=== PATIENT | female | born 1940 | race Caucasian/White ===

== ENCOUNTER 2017-02-06 12:20 | Emergency (ER) | payer MEDICARE, BC ==
[2017-02-06] MEDS ORDERED: Sodium Chloride 0.9% 10 ML Syringe FLUSH PRN (12:30)
--- NOTE | 2017-02-06 12:30 | EDM.PDOC ---
ED HPI GENERAL MEDICAL PROBLEM - General Chief Complaint: Genitourinary Problem Stated Complaint: Pelvic Pain; Vaginal Bleeding Time Seen by Provider: 02/06/17 12:24 Source of Information: Reports: Patient, EMS Notes Reviewed, RN, RN Notes Reviewed History Limitations: Reports: No Limitations - History of Present Illness INITIAL COMMENTS - FREE TEXT/NARRATIVE: Patient is brought to the ED at [facility] via EMS complaining of acute vaginal bleeding with clots. Patient states she has on/off vaginal spotting since April 2016. She states over the past week, she had felt very nauseated and just not feeling well. Patient states earlier today, she had bright red blood with clots. She states she got very dizzy and felt faint. She then call 911 for assistance. Upon arrival, EMS crew states the patient did have a syncopal episode briefly when they were getting her onto the cot. Patient denies any medical history. She has not seen a medical provider in over 5 years. She denies taking any prescription medication. She complains of low back pain. She complains of lower anterior pelvic pain that is dull, achey in nature. She feels dizzy and nauseated. She received one dose of 4mg Zofran from EMS prior to arrival. Onset: Today, Sudden Onset Date: 02/06/17 Onset Time: 11:30 Duration: Waxing/Waning Location: Reports: Pelvis Quality: Reports: Ache Severity: Mild Improves with: Reports: None Worsens with: Reports: Movement Associated Symptoms: Reports: Nausea/Vomiting Treatments CHEMICAL PROCESSOR: Reports: See EMS Report Lower Back Pain Score (Numeric/FACES): 5 - Related Data Allergies Allergy/AdvReac Type Severity Reaction Status Date / Time amoxicillin Allergy Redness Verified 02/06/17 12:33 ceftriaxone Allergy Redness Verified 02/06/17 12:33 Home Meds: Home Meds . [No Known Home Meds] 10/07/14 [History] Past Medical History - Past Health History Medical/Surgical History: Denies Medical/Surgical History Social & Family History - Tobacco Use Smoking Status *Q: Never Smoker - Recreational Drug Use Recreational Drug Use: No ED ROS GENERAL - Review of Systems Review Of Systems: See Below Constitutional: Denies: Fever, Chills, Weakness Respiratory: Denies: Shortness of Breath, Cough Cardiovascular: Denies: Chest Pain, Palpitations GI/Abdominal: Reports: Nausea, Vomiting. Denies: Abdominal Pain : Reports: Discharge, Pain Skin: Reports: No Symptoms Neurological: Reports: Dizziness, Syncope. Denies: Headache, Numbness, Paresthesia, Tingling ED EXAM, RENAL/ - Physical Exam Exam: See Below Exam Limited By: No Limitations General Appearance: Alert, No Apparent Distress Respiratory/Chest: No Respiratory Distress, Lungs Clear, Normal Breath Sounds Cardiovascular: Normal Peripheral Pulses, Regular Rate, Rhythm GI/Abdominal: Soft, Abnormal Bowel Sounds (Hypoactive) (Female) Exam: Vaginal Bleeding (clots) Neurological: Alert, Oriented Skin Exam: Warm, Dry, Intact, Normal Color, No Rash Course - Vital Signs Last Recorded V/S: Last Vital Signs Temp 35.5 C 02/06/17 12:20 Pulse 91 02/06/17 13:00 Resp 16 02/06/17 12:20 BP 191/80 H 02/06/17 13:00 Pulse Ox 98 02/06/17 12:20 - Orders/Labs/Meds Orders: Active Orders 24 hr Category Date Time Status Insert Bridges Catheter [Insert Urinary Catheter] [OM.PC] Care 02/06/17 13:30 Ordered Stat Urinary Catheter Assessment [RC] ASDIRECTED Care 02/06/17 13:24 Active Abdomen Pelvis wo Cont [CT] Stat Exams 02/06/17 13:07 Taken Sodium Chloride 0.9% [Saline Flush] Med 02/06/17 12:30 Active 10 ml FLUSH ASDIRECTED PRN Peripheral IV Insertion Adult [OM.PC] Routine Oth 02/06/17 12:30 Ordered Medication Orders Sodium Chloride (Saline Flush) 10 ml FLUSH ASDIRECTED PRN PRN Reason: Keep Vein Open Labs: Laboratory Tests 02/06/17 02/06/17 02/06/17 Range/Units 12:37 12:37 13:02 WBC 8.2 (4.0-10.0) x10^3/uL RBC 1.79 L (4.00-5.50) x10^6/uL Hgb 5.4 L* D (12.0-16.0) g/dL Hct 16.1 L (33.0-47.0) % MCV 89.9 (78.0-93.0) fL MCH 30.2 (26.0-32.0) pg MCHC 33.5 (32.0-36.0) g/dL RDW Coeff of Martita 13.2 (10.0-15.0) % Plt Count 174 (130-400) x10^3/uL Add Manual Diff Yes Neutrophils % (Manual) 96 H (50-80) % Lymphocytes % (Manual) 3 L (25-50) % Monocytes % (Manual) 1 L (2-11) % Toxic Granulation 1+ slight H Platelet Estimate Adequate Poikilocytosis 1+ slight H Ovalocytes 1+ slight H [place] Cells 1+ slight H Rouleaux 1+ slight H Schistocytes Rare Sodium 136 (136-145) mmol/L Potassium 4.2 (3.5-5.1) mmol/L Chloride 104 (98-107) mmol/L Carbon Dioxide 12 L D (21-32) mmol/L BUN 121 H* D (7-18) mg/dL Creatinine 14.0 H* D (0.55-1.02) mg/dL Est Cr Clr Drug Dosing TNP Estimated GFR (MDRD) 3 Glucose 150 H (74-106) mg/dL Calcium 7.2 L D (8.5-10.1) mg/dL Corrected Calcium 8.24 L (8.5-10.1) mg/dL Total Bilirubin 0.5 (0.2-1.0) mg/dL AST 9 L (15-37) U/L ALT 8 L (14-59) U/L Alkaline Phosphatase 63 (46-116) U/L Total Protein 5.9 L (6.4-8.2) g/dL Albumin 2.7 L (3.4-5.0) g/dL Globulin 3.2 Albumin/Globulin Ratio 0.84 Urine Color Light yellow (YELLOW) Urine Appearance Clear (CLEAR) Urine pH 6.5 (5.0-8.0) Ur Specific [place] 1.010 Urine Protein 30 H (NEGATIVE) mg/dL Urine Glucose (UA) Negative (NEGATIVE) mg/dL Urine Ketones Negative (NEGATIVE) mg/dL Urine Occult Blood Moderate H (NEGATIVE) Urine Nitrite Negative (NEGATIVE) Urine Bilirubin Negative (NEGATIVE) Urine Urobilinogen 0.2 (0.2) EU/dL Ur Leukocyte Esterase Trace H (NEGATIVE) Urine RBC 0-5 (NOT SEEN) /HPF Urine WBC 0-5 (NOT SEEN) /HPF Ur Squamous Epith Cells Not seen (NEGATIVE) /HPF Urine Bacteria Rare (NEGATIVE) /HPF Urine Mucus Rare H (NEGATIVE) /LPF Meds: Medications Generic Name Dose Route Start Last Admin Trade Name Kirk PRN Reason Stop Dose Admin Sodium Chloride 10 ml 02/06/17 12:30 Saline Flush FLUSH ASDIRECTED PRN Keep Vein Open Departure - Departure Time of Disposition: 13:48 Disposition: DC/Tfer to Acute Hospital 02 Condition: Fair Clinical Impression: Vaginal bleeding, abnormal, Low hemoglobin Acute renal failure Qualifiers: Acute renal failure type: unspecified Qualified Code(s): N17.9 - Acute kidney failure, unspecified - Discharge Information Forms: Interfacility Transfer EMTALA ED Communication - ED Communication Date/Time Date: 02/06/17 Time Called: 13:40 - Discussed Case With (1) Discussed Case With (1): Admitting Provider (Dr. Shah, Hospitalist) - Conversation Summary Admitting Provider Agreed to Patient's Admission: Yes Summary Comment: Case discussed with Dr. Shah along with [facility] services. Patient will be transferred to [facility] for further workup and eval. Discussed with patient and agrees with transfer. - Problem List Review Problem List Initiated/Reviewed/Updated: Yes - My Orders Last 24 Hours: My Active Orders 02/06/17 12:30 Sodium Chloride 0.9% [Saline Flush] 10 ml FLUSH ASDIRECTED PRN Peripheral IV Insertion Adult [OM.PC] Routine 02/06/17 13:07 Abdomen Pelvis wo Cont [CT] Stat 02/06/17 13:24 Urinary Catheter Assessment [RC] ASDIRECTED 02/06/17 13:30 Insert Bridges Catheter [Insert Urinary Catheter] [OM.PC] Stat - Assessment/Plan Last 24 Hours: My Active Orders 02/06/17 12:30 Sodium Chloride 0.9% [Saline Flush] 10 ml FLUSH ASDIRECTED PRN Peripheral IV Insertion Adult [OM.PC] Routine 02/06/17 13:07 Abdomen Pelvis wo Cont [CT] Stat 02/06/17 13:24 Urinary Catheter Assessment [RC] ASDIRECTED 02/06/17 13:30 Insert Bridges Catheter [Insert Urinary Catheter] [OM.PC] Stat
[2017-02-06 13:04] LABS: CHLORIDE,CL 104 mmol/L (98-107); SODIUM,NA 136 mmol/L (136-145)
[2017-02-06 13:56] VITALS: BP 174/79
== END 2017-02-06 14:58 | disposition short-term general hospital (02) ==
LOC: VM.ED 12:20
DX: N93.9 Abnormal uterine and vaginal bleeding, unspecified (principal); D64.9 Anemia, unspecified; N17.9 Acute kidney failure, unspecified
CPT/HCPCS: 36415; 51702; 74176; 80053; 81001; 85025; 99284-GF; 99285

== ENCOUNTER 2017-10-16 12:54 | Emergency (ER) | payer MEDICARE, BC, MEDICAID ==
[2017-10-16] MEDS ORDERED: Sodium Chloride 0.9% 1,000 ML IV ONE ×2 (13:22→13:50)
--- NOTE | 2017-10-16 13:43 | EDM.PDOC ---
ED HPI GENERAL MEDICAL PROBLEM - General Chief Complaint: Cardiovascular Problem Stated Complaint: chest pain on inspiration Time Seen by Provider: 10/16/17 13:00 Source of Information: Reports: Patient History Limitations: Reports: No Limitations - History of Present Illness INITIAL COMMENTS - FREE TEXT/NARRATIVE: Patient reports chest pain that started last night. She states that it is worse when she takes a deep breath in. She states that it does radiate to the back and ribs. No nausea, vomiting, blood in urine or stool. 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 She does have bilateral nephrostomy tubes draining. Last change of these is reported to be last March,. Recently treated for UTI with course completion of Cipro on this last October 14. Denies fever, chills, night sweats. Does feel weak and was referred here by her hospice team. Onset: Gradual Onset Date: 10/15/17 Duration: Getting Worse Location: Reports: Chest Quality: Reports: Pressure Worsens with: Reports: Movement Middle Chest Pain Score (Numeric/FACES): 10 - Related Data Allergies Allergy/AdvReac Type Severity Reaction Status Date / Time amoxicillin Allergy Redness Verified 02/06/17 12:33 ceftriaxone Allergy Redness Verified 02/06/17 12:33 Home Meds: Home Meds . [No Known Home Meds] 10/07/14 [History] Past Medical History - Past Health History Medical/Surgical History: Denies Medical/Surgical History ED ROS GENERAL - Review of Systems Review Of Systems: See Below Constitutional: Reports: No Symptoms HEENT: Reports: No Symptoms Respiratory: Reports: Shortness of Breath Cardiovascular: Reports: Chest Pain Endocrine: Reports: No Symptoms GI/Abdominal: Reports: No Symptoms : Reports: No Symptoms Musculoskeletal: Reports: No Symptoms Skin: Reports: No Symptoms Neurological: Reports: Weakness Psychiatric: Reports: No Symptoms Hematologic/Lymphatic: Reports: No Symptoms Immunologic: Reports: No Symptoms ED EXAM, GENERAL - Physical Exam Exam: See Below Exam Limited By: No Limitations General Appearance: Alert, WD/WN, Mild Distress Eye Exam: Bilateral Eye: EOMI, Normal Inspection, PERRL Ears: Normal TMs Throat/Mouth: Normal Inspection, Normal Lips, Normal Teeth, Normal Gums, Normal Oropharynx, Normal Voice, No Airway Compromise Head: Atraumatic, Normocephalic Neck: Normal Inspection, Supple, Non-Tender, Full Range of Motion Respiratory/Chest: No Respiratory Distress, Lungs Clear, Normal Breath Sounds, No Accessory Muscle Use, Chest Non-Tender Cardiovascular: Tachycardia, Irregularly Irregular Peripheral Pulses: 2+: Posterior Tibial (L), Posterior Tibial (R), Dorsalis Pedis (L), Dorsalis Pedis (R) GI/Abdominal: Normal Bowel Sounds, Soft, Non-Tender, Other (bilateral nephrostomy tubes intact) Back Exam: Normal Inspection, Full Range of Motion, NT Extremities: Normal Inspection, Normal Range of Motion, Non-Tender, Normal Capillary Refill, No Pedal Edema Neurological: Alert, Oriented, CN II-XII Intact, Normal Cognition, Normal Gait, Normal Reflexes, No Motor/Sensory Deficits Psychiatric: Normal Affect, Normal Mood Skin Exam: Warm, Dry, Intact, Normal Color, No Rash Course - Vital Signs Last Recorded V/S: Last Vital Signs Temp 38.6 C H 10/16/17 14:50 Pulse 113 H 10/16/17 15:16 Resp 20 10/16/17 14:50 BP 90/63 10/16/17 15:16 Pulse Ox 97 10/16/17 14:50 - Orders/Labs/Meds Orders: Active Orders 24 hr Category Date Time Status EKG 12 Lead [EKG Documentation Completion] [RC] ROUTINE Care 10/16/17 15:11 Ordered EKG Documentation Completion [RC] ROUTINE Care 10/16/17 13:00 Active Chest 1V Frontal [CR] Stat Exams 10/16/17 13:01 Taken CULTURE BLOOD [BC] Stat Lab 10/16/17 13:21 Received CULTURE BLOOD [BC] Stat Lab 10/16/17 13:25 Results Sodium Chloride 0.9% [Saline Flush] Med 10/16/17 14:39 Active 10 ml FLUSH ASDIRECTED PRN Blood Culture x2 Reflex Set [OM.PC] Stat Oth 10/16/17 13:23 Ordered Saline Lock Insert [OM.PC] Routine Oth 10/16/17 14:39 Ordered Medication Orders Sodium Chloride (Saline Flush) 10 ml FLUSH ASDIRECTED PRN PRN Reason: Keep Vein Open Labs: Laboratory Tests 10/16/17 10/16/17 10/16/17 Range/Units 13:21 13:21 13:21 WBC 11.5 H (4.0-10.0) x10^3/uL RBC 2.88 L (4.00-5.50) x10^6/uL Hgb 8.4 L D (12.0-16.0) g/dL Hct 25.8 L (33.0-47.0) % MCV 89.6 (78.0-93.0) fL MCH 29.2 (26.0-32.0) pg MCHC 32.6 (32.0-36.0) g/dL RDW Coeff of Martita 14.9 (10.0-15.0) % Plt Count 599 H D (130-400) x10^3/uL Neut % (Auto) 90.2 H (50.0-80.0) % Lymph % (Auto) 4.3 L (25.0-50.0) % [place] % (Auto) 5.1 (2.0-11.0) % Eos % (Auto) 0.3 (0.0-4.0) % Baso % (Auto) 0.1 L (0.2-1.2) % PT 10.4 (9.6-11.4) SEC INR 1.0 L (2.0-3.5) Sodium 130 L (136-145) mmol/L Potassium 4.0 (3.5-5.1) mmol/L Chloride 100 (98-107) mmol/L Carbon Dioxide 17 L (21-32) mmol/L Anion Gap 17.0 (10-20) mmol/L BUN 37 H D (7-18) mg/dL Creatinine 3.1 H* D (0.55-1.02) mg/dL Est Cr Clr Drug Dosing TNP Estimated GFR (MDRD) 15 Glucose 103 (74-106) mg/dL Lactic Acid (0.4-2.0) mmol/L Calcium 8.2 L (8.5-10.1) mg/dL Corrected Calcium 9.64 (8.5-10.1) mg/dL Magnesium 1.4 L (1.8-2.4) mg/dL Total Bilirubin 0.4 (0.2-1.0) mg/dL AST 13 L (15-37) U/L ALT 14 (14-59) U/L Alkaline Phosphatase 80 (46-116) U/L Creatine Kinase 9 L (26-192) U/L Troponin I < 0.017 (<=0.056) ng/mL C-Reactive Protein 11.2 H (<=0.9) mg/dL NT-Pro-B Natriuret Pep (<=125) pg/mL Total Protein 7.2 (6.4-8.2) g/dL Albumin 2.2 L (3.4-5.0) g/dL Globulin 5.0 Albumin/Globulin Ratio 0.44 Urine Color (YELLOW) Urine Appearance (CLEAR) Urine pH (5.0-8.0) Ur Specific [place] Urine Protein (NEGATIVE) mg/dL Urine Glucose (UA) (NEGATIVE) mg/dL Urine Ketones (NEGATIVE) mg/dL Urine Occult Blood (NEGATIVE) Urine Nitrite (NEGATIVE) Urine Bilirubin (NEGATIVE) Urine Urobilinogen (0.2) EU/dL Ur Leukocyte Esterase (NEGATIVE) Urine RBC (NOT SEEN) /HPF Urine WBC (NOT SEEN) /HPF Ur Squamous Epith Cells (NEGATIVE) /HPF Urine Bacteria (NEGATIVE) /HPF Urine Mucus (NEGATIVE) /LPF 10/16/17 10/16/17 10/16/17 Range/Units 13:21 13:21 13:43 WBC (4.0-10.0) x10^3/uL RBC (4.00-5.50) x10^6/uL Hgb (12.0-16.0) g/dL Hct (33.0-47.0) % MCV (78.0-93.0) fL MCH (26.0-32.0) pg MCHC (32.0-36.0) g/dL RDW Coeff of Martita (10.0-15.0) % Plt Count (130-400) x10^3/uL Neut % (Auto) (50.0-80.0) % Lymph % (Auto) (25.0-50.0) % [place] % (Auto) (2.0-11.0) % Eos % (Auto) (0.0-4.0) % Baso % (Auto) (0.2-1.2) % PT (9.6-11.4) SEC INR (2.0-3.5) Sodium (136-145) mmol/L Potassium (3.5-5.1) mmol/L Chloride (98-107) mmol/L Carbon Dioxide (21-32) mmol/L Anion Gap (10-20) mmol/L BUN (7-18) mg/dL Creatinine (0.55-1.02) mg/dL Est Cr Clr Drug Dosing Estimated GFR (MDRD) Glucose (74-106) mg/dL Lactic Acid 1.2 (0.4-2.0) mmol/L Calcium (8.5-10.1) mg/dL Corrected Calcium (8.5-10.1) mg/dL Magnesium (1.8-2.4) mg/dL Total Bilirubin (0.2-1.0) mg/dL AST (15-37) U/L ALT (14-59) U/L Alkaline Phosphatase (46-116) U/L Creatine Kinase (26-192) U/L Troponin I (<=0.056) ng/mL C-Reactive Protein (<=0.9) mg/dL NT-Pro-B Natriuret Pep 1881 H (<=125) pg/mL Total Protein (6.4-8.2) g/dL Albumin (3.4-5.0) g/dL Globulin Albumin/Globulin Ratio Urine Color Light yellow (YELLOW) Urine Appearance Turbid H (CLEAR) Urine pH 6.0 (5.0-8.0) Ur Specific [place] 1.015 Urine Protein 100 H (NEGATIVE) mg/dL Urine Glucose (UA) Negative (NEGATIVE) mg/dL Urine Ketones Negative (NEGATIVE) mg/dL Urine Occult Blood Large H (NEGATIVE) Urine Nitrite Positive H (NEGATIVE) Urine Bilirubin Negative (NEGATIVE) Urine Urobilinogen 0.2 (0.2) EU/dL Ur Leukocyte Esterase Large H (NEGATIVE) Urine RBC 20-30 H (NOT SEEN) /HPF Urine WBC Packed (NOT SEEN) /HPF Ur Squamous Epith Cells Rare (NEGATIVE) /HPF Urine Bacteria Moderate H (NEGATIVE) /HPF Urine Mucus Not seen (NEGATIVE) /LPF Meds: Medications Generic Name Dose Route Start Last Admin Trade Name Freq PRN Reason Stop Dose Admin Sodium Chloride 10 ml 10/16/17 14:39 Saline Flush FLUSH ASDIRECTED PRN Keep Vein Open Discontinued Medications Generic Name Dose Route Start Last Admin Trade Name Freq PRN Reason Stop Dose Admin Diltiazem HCl 20 mg 10/16/17 13:50 07/03/18 13:55 Diltiazem IVPUSH 10/16/17 13:51 20 mg ONETIME ONE Administration Diltiazem HCl 20 mg 10/16/17 14:52 Diltiazem IVPUSH 10/16/17 14:53 ONETIME ONE Diltiazem HCl 15 mg 10/16/17 14:53 10/16/17 15:16 Diltiazem IVPUSH 10/16/17 14:54 Not Given ONETIME ONE Sodium Chloride 1,000 mls @ 999 mls/hr 10/16/17 13:22 10/16/17 13:23 Normal Saline IV 10/16/17 14:22 999 mls/hr ONETIME ONE Administration Vancomycin HCl 1,500 mg/ 250 mls @ 167 mls/hr 10/16/17 13:30 10/16/17 13:52 Sodium Chloride IV 10/16/17 14:59 167 mls/hr ONETIME ONE Administration Sodium Chloride 1,000 mls @ 999 mls/hr 10/16/17 13:50 10/16/17 14:49 Normal Saline IV 10/16/17 14:50 999 mls/hr ONETIME ONE Administration Piperacillin Sod/Tazobactam 100 mls @ 200 mls/hr 10/16/17 14:54 10/16/17 15: 08 Sod 2.25 gm/ Sodium Chloride IV 10/16/17 15:23 200 mls/hr ONETIME ONE Administration - Radiology Interpretation Free Text/Narrative:: chest x-ray is negative for acute process - Re-Assessments/Exams Free Text/Narrative Re-Assessment/Exam: 10/16/17 15:08 Carolina with hospice called regarding need for transfer. She will have someone stop by to have forms filled out for payment of expenses per patient. Departure - Departure Time of Disposition: 15:37 Disposition: DC/Tfer to Acute Hospital 02 Reason for Transfer *Q: Other Condition: Fair Clinical Impression: Sepsis, Atrial fibrillation with RVR Referrals: PCP,Unknown [Primary Care Provider] - Forms: ED Department Discharge, Interfacility Transfer EMTALA ED Communication - Discussed Case With (1) Discussed Case With (1): Admitting Provider (Report given to Dr. Lopez. He will accept care of patient to room 269) - My Orders Last 24 Hours: My Active Orders 10/16/17 13:00 EKG Documentation Completion [RC] ROUTINE 10/16/17 13:01 Chest 1V Frontal [CR] Stat 10/16/17 13:21 CULTURE BLOOD [BC] Stat 10/16/17 13:23 Blood Culture x2 Reflex Set [OM.PC] Stat 10/16/17 13:25 CULTURE BLOOD [BC] Stat 10/16/17 14:39 Sodium Chloride 0.9% [Saline Flush] 10 ml FLUSH ASDIRECTED PRN Saline Lock Insert [OM.PC] Routine 10/16/17 15:11 EKG 12 Lead [EKG Documentation Completion] [RC] ROUTINE - Assessment/Plan Last 24 Hours: My Active Orders 10/16/17 13:00 EKG Documentation Completion [RC] ROUTINE 10/16/17 13:01 Chest 1V Frontal [CR] Stat 10/16/17 13:21 CULTURE BLOOD [BC] Stat 10/16/17 13:23 Blood Culture x2 Reflex Set [OM.PC] Stat 10/16/17 13:25 CULTURE BLOOD [BC] Stat 10/16/17 14:39 Sodium Chloride 0.9% [Saline Flush] 10 ml FLUSH ASDIRECTED PRN Saline Lock Insert [OM.PC] Routine 10/16/17 15:11 EKG 12 Lead [EKG Documentation Completion] [RC] ROUTINE
[2017-10-16] MEDS ORDERED: Diltiazem 25 MG/5 ML SDV IVPUSH ONE ×3 (13:50→14:53)
[2017-10-16 14:02] LABS: CHLORIDE,CL 100 mmol/L (98-107); SODIUM,NA 130 mmol/L (136-145)
[2017-10-16] MEDS ORDERED: Sodium Chloride 0.9% 10 ML Syringe FLUSH PRN (14:39)
[2017-10-16] MEDS ORDERED: Piperacillin/Tazobactam 2.25 GM in Sodium Chloride 0.9% 100 ML IV ONE (14:54)
[2017-10-16 15:17] VITALS: BP 90/63
== END 2017-10-16 15:47 | disposition short-term general hospital (02) ==
LOC: VM.ED 12:54
DX: A41.9 Sepsis, unspecified organism (principal); I48.91 Unspecified atrial fibrillation; Z88.1 Allergy status to other antibiotic agents
CPT/HCPCS: 36415; 71045; 80053; 81001; 82550; 83605; 83735; 83880; 84484; 85025; 85610; 86140; 87040; 87077; 93005; 96365; 96366; 96375; 99285; J2543; J3370; J3490; J7030; J7050

== ENCOUNTER 2017-12-19 16:04 | Emergency (ER) | payer MEDICARE, BC, MEDICAID ==
[2017-12-19] MEDS ORDERED: Sodium Chloride 0.9% 10 ML Syringe FLUSH PRN (16:17)
[2017-12-19] MEDS ORDERED: Sodium Chloride 0.9% 1,000 ML IV ONE (16:34)
[2017-12-19] MEDS ORDERED: Ondansetron 4 MG/2 ML SDV IVPUSH ONE (16:35)
[2017-12-19 16:56] VITALS: BP 144/70
[2017-12-19 16:59] LABS: ANION GAP 13.6 mmol/L (10-20)
--- NOTE | 2017-12-19 17:37 | EDM.PDOC ---
ED HPI GENERAL MEDICAL PROBLEM - General Chief Complaint: Syncope Stated Complaint: Syncope Time Seen by Provider: 12/19/17 16:08 Source of Information: Reports: Patient, RN, RN Notes Reviewed History Limitations: Reports: No Limitations - History of Present Illness INITIAL COMMENTS - FREE TEXT/NARRATIVE: Patient is brought to the ED at [facility] via EMS with concerns of low hemoglobin. Patient states she has a syncopal episode today. She states her symptoms started last Sunday and have progressively gotten worse. She states she has not fallen or hit her head. She states she feels nauseated at times. No vomiting or diarrhea. No blood in BM. She is also concerned about her nephrostomy tubes "being plugged." She states she has been trying to flush them and she is unable. Patient denies any chest pain. She feels lightheaded at times with dizziness. She states she is trying to stay well hydrated. Patient thinks her nephrostomy drains are plugged or dislodged. Onset: Gradual - Related Data Allergies Allergy/AdvReac Type Severity Reaction Status Date / Time amoxicillin Allergy Redness Verified 12/19/17 16:50 ceftriaxone Allergy Redness Verified 12/19/17 16:50 Home Meds: Home Meds Sodium Bicarbonate 650 mg BID 12/19/17 [History] Past Medical History - Past Health History Medical/Surgical History: Denies Medical/Surgical History Gastrointestinal History: Reports: Other (See Below) Other Gastrointestinal History: liver abscess Genitourinary History: Reports: Other (See Below) Other Genitourinary History: bilat nephrostomy tubes. stage 5 kidney disease. hydronephrosis Musculoskeletal History: Reports: Osteoarthritis Hematologic History: Reports: Anemia Oncologic (Cancer) History: Reports: Bladder, Cervix, Uterine Social & Family History - Tobacco Use Smoking Status *Q: Never Smoker - Recreational Drug Use Recreational Drug Use: No ED ROS GENERAL - Review of Systems Review Of Systems: See Below Constitutional: Denies: Fever, Chills, Weakness Respiratory: Denies: Shortness of Breath, Cough Cardiovascular: Reports: Lightheadedness. Denies: Chest Pain, Palpitations GI/Abdominal: Reports: Nausea. Denies: Abdominal Pain, Diarrhea, Vomiting Skin: Reports: No Symptoms Neurological: Reports: Dizziness, Syncope. Denies: Headache - Physical Exam Exam: See Below Exam Limited By: No Limitations General Appearance: Alert, No Apparent Distress Respiratory/Chest: No Respiratory Distress, Lungs Clear, Normal Breath Sounds Cardiovascular: Normal Peripheral Pulses, Regular Rate, Rhythm GI/Abdominal: Soft, Tender (generalized), Abnormal Bowel Sounds (Hypoactive) Neuro Exam (Abbreviated): Alert, Oriented Skin Exam: Warm, Dry, Intact, Normal Color Course - Vital Signs Last Recorded V/S: Last Vital Signs Temp 37.9 C 12/19/17 16:15 Pulse 106 H 12/19/17 16:15 Resp 20 12/19/17 16:15 BP 144/70 H 12/19/17 16:15 Pulse Ox 97 12/19/17 16:15 - Orders/Labs/Meds Orders: Active Orders 24 hr Category Date Time Status Sodium Chloride 0.9% [Saline Flush] Med 12/19/17 16:17 Active 10 ml FLUSH ASDIRECTED PRN Peripheral IV Insertion Adult [OM.PC] Routine Oth 12/19/17 16:17 Ordered Medication Orders Sodium Chloride (Saline Flush) 10 ml FLUSH ASDIRECTED PRN PRN Reason: Keep Vein Open Labs: Laboratory Tests 12/19/17 12/19/17 Range/Units 16:29 16:29 WBC 8.3 (4.0-10.0) x10^3/uL RBC 2.90 L (4.00-5.50) x10^6/uL Hgb 8.7 L (12.0-16.0) g/dL Hct 25.8 L (33.0-47.0) % MCV 89.0 (78.0-93.0) fL MCH 30.0 (26.0-32.0) pg MCHC 33.7 (32.0-36.0) g/dL RDW Coeff of Martita 15.7 H (10.0-15.0) % Plt Count 413 H D (130-400) x10^3/uL Neut % (Auto) 81.0 H (50.0-80.0) % Lymph % (Auto) 8.7 L (25.0-50.0) % [place] % (Auto) 9.0 (2.0-11.0) % Eos % (Auto) 1.2 (0.0-4.0) % Baso % (Auto) 0.1 L (0.2-1.2) % Sodium 128 L* (136-145) mmol/L Potassium 3.6 (3.5-5.1) mmol/L Chloride 97 L (98-107) mmol/L Carbon Dioxide 21 (21-32) mmol/L Anion Gap 13.6 (10-20) mmol/L BUN 25 H (7-18) mg/dL Creatinine 2.0 H (0.55-1.02) mg/dL Est Cr Clr Drug Dosing 23.63 mL/min Estimated GFR (MDRD) 24 Glucose 96 (74-106) mg/dL Calcium 8.4 L (8.5-10.1) mg/dL Corrected Calcium 10.00 (8.5-10.1) mg/dL Phosphorus 3.6 (2.6-4.7) mg/dL Magnesium 1.9 (1.8-2.4) mg/dL Total Bilirubin 0.4 (0.2-1.0) mg/dL AST 18 (15-37) U/L ALT 12 L (14-59) U/L Alkaline Phosphatase 87 (46-116) U/L Total Protein 7.0 (6.4-8.2) g/dL Albumin 2.0 L (3.4-5.0) g/dL Globulin 5.0 Albumin/Globulin Ratio 0.40 Meds: Medications Generic Name Dose Route Start Last Admin Trade Name Freq PRN Reason Stop Dose Admin Sodium Chloride 10 ml 12/19/17 16:17 Saline Flush FLUSH ASDIRECTED PRN Keep Vein Open Discontinued Medications Generic Name Dose Route Start Last Admin Trade Name Freq PRN Reason Stop Dose Admin Sodium Chloride 1,000 mls @ 999 mls/hr 12/19/17 16:34 12/19/17 16:44 Normal Saline IV 12/19/17 17:34 999 mls/hr ONETIME ONE Administration Ondansetron HCl 4 mg 12/19/17 16:35 12/19/17 16:44 Zofran IVPUSH 12/19/17 16:36 4 mg ONETIME ONE Administration Departure - Departure Time of Disposition: 18:30 Disposition: DC/Tfer to Acute Hospital 02 Condition: Fair Clinical Impression: Syncope Qualifiers: Syncope type: unspecified Qualified Code(s): R55 - Syncope and collapse - Discharge Information *PRESCRIPTION DRUG MONITORING PROGRAM REVIEWED*: Not Applicable *COPY OF PRESCRIPTION DRUG MONITORING REPORT IN PATIENT BOBBY: Not Applicable Forms: Interfacility Transfer [facility] ED Communication - ED Communication Date/Time Date: 12/19/17 Time Called: 17:50 - Discussed Case With (1) Discussed Case With (1): Admitting Provider (Dr. Leidy Arias) - Conversation Summary Admitting Provider Agreed to Patient's Admission: Yes Patient Aware of Amendments fo Care Plan: Yes - Problem List Review Problem List Initiated/Reviewed/Updated: Yes - My Orders Last 24 Hours: My Active Orders 12/19/17 16:17 Sodium Chloride 0.9% [Saline Flush] 10 ml FLUSH ASDIRECTED PRN Peripheral IV Insertion Adult [OM.PC] Routine - Assessment/Plan Last 24 Hours: My Active Orders 12/19/17 16:17 Sodium Chloride 0.9% [Saline Flush] 10 ml FLUSH ASDIRECTED PRN Peripheral IV Insertion Adult [OM.PC] Routine Assessment:: Syncope Plan: Case discussed Dr. Leidy Arias. Patient will be sent to [facility]. Patient will be sent via BLS. Patient accepted in transfer. Patient agrees with the POC and wishes to proceed.
== END 2017-12-19 19:15 | disposition short-term general hospital (02) ==
LOC: VM.ED 16:04
DX: R55 Syncope and collapse (principal); Z88.1 Allergy status to other antibiotic agents
CPT/HCPCS: 36415; 80053; 83735; 84100; 85025; 96361; 96374; 99284-GF; 99285; J2405; J7030